=== PATIENT | male | born 1945 | race Caucasian/White ===

== ENCOUNTER 2020-11-13 14:09 | Outpatient (RCR) | payer MEDICARE, SELFPAY | END 2020-11-13 23:59 | LOC: IMMUN 14:09 | PROVIDERS: Visit Provider Family Medicine | DX: Z23 Encounter for immunization (principal) | CPT/HCPCS: 0011A; 0012A ==

== ENCOUNTER 2023-03-23 16:38 | Emergency (ER) | payer MEDICARE, SELFPAY ==
[2023-03-23 16:39] VITALS: PULSE 89; RESP 14; TEMP 36.4; O2SAT 99; BMI 30.3
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
== END 2023-03-23 17:06 | disposition home or self-care (01) ==
LOC: ED 17:04
PROVIDERS: Emergency Provider Emergency Medicine; PCP Family Medicine; Visit Provider Emergency Medicine
DX: T23.162A Burn of first degree of back of left hand, initial encounter (principal); X10.1XXA Contact with hot food, initial encounter; Y93.G3 Activity, cooking and baking
CPT/HCPCS: 99282